=== PATIENT | male | born 1990 | race Caucasian/White ===

== ENCOUNTER 2017-04-18 16:26 | Emergency (ER) | payer SELFPAY ==
[~2017-04-18] VITALS: Ht 182.9 cm; Wt 81.8 kg
[2017-04-18] MEDS ORDERED: SULFAMETHOX/TRIMETH DS 800-160 MG/TABLET PO ONE (18:15)
[2017-04-18] MEDS ORDERED: BACITRACIN 0.9 GM PACKET OINTMENT TP ONE (18:15)
[2017-04-18] MEDS ORDERED: IBUPROFEN 800 MG TABLET PO ONE (18:15)
[2017-04-18 18:54] VITALS: BP 128/81
== END 2017-04-18 19:16 | disposition home or self-care (01) ==
LOC: EMS 16:29
DX: S81.001A Unspecified open wound, right knee, initial encounter (principal); L03.115 Cellulitis of right lower limb
CPT/HCPCS: 99284